=== PATIENT | male | born 1950 | race Caucasian/White ===

== ENCOUNTER 2017-08-03 22:35 | Emergency (ER) | payer MEDICARE, MEDICAID ==
[~2017-08-03] VITALS: Ht 165.1 cm; Wt 72.7 kg
[2017-08-04] MEDS ORDERED: KETOROLAC TROMETHAMINE 30 MG/ML VIAL IM ONE (01:30)
[2017-08-04 05:10] VITALS: BP 126/77
== END 2017-08-04 06:37 | disposition home or self-care (01) ==
LOC: EMS 22:37
DX: S82.832A Other fracture of upper and lower end of left fibula, initial encounter for closed fracture (principal); S00.03XA Contusion of scalp, initial encounter; M25.562 Pain in left knee; Y04.0XXA Assault by unarmed brawl or fight, initial encounter; Y93.89 Activity, other specified; Y92.89 Other specified places as the place of occurrence of the external cause; Y99.8 Other external cause status
CPT/HCPCS: 29515; 70450; 70486; 71045; 72125; 72170; 73030; 73590; 96372; 99284; J1885

== ENCOUNTER 2022-12-13 09:44 | Emergency (ER) | payer MEDICARE, MEDICAID ==
[~2022-12-13] VITALS: Ht 162.6 cm; Wt 61.4 kg
[2022-12-13 09:48] VITALS: BP 152/78; PULSE 77; RESP 16; TEMP 98.1
== END 2022-12-13 13:12 | disposition home or self-care (01) ==
LOC: EMS 09:44
DX: K40.90 Unilateral inguinal hernia, without obstruction or gangrene, not specified as recurrent (principal)
CPT/HCPCS: 99281; Z7502